=== PATIENT | female | born 1955 | race Hispanic/Latino ===

== ENCOUNTER 2020-02-08 17:17 | Inpatient (IN) | payer OTHER, BC ==
--- NOTE | 2020-02-08 17:38 | RAD REPORT ---
EXAM DESCRIPTION: CT - Ct Stroke Brain Wo Cont - 02/08/2020 5:31 pm CLINICAL HISTORY: CONFUSED COMPARISON: None TECHNIQUE: Axial 5 millimeter thick images of the head were obtained without IV contrast. All CT scans are performed using dose optimization technique as appropriate and may include automated exposure control or mA/KV adjustment according to patient size. FINDINGS: No intracranial hemorrhage, mass, or cerebral edema. No acute infarction identifiable. No cortical edema or sulcal effacement. No extra-axial fluid collections. Nichols matter-white matter diff erentiation is preserved.Ventricles are normal. Visualized portions of the mastoid air cells, paranasal sinuses, and orbits are unremarkable. Findings telephoned to the referring physician 1723 hours IMPRESSION: No CT evidence of acute intracranial process.
[2020-02-08] MEDS ORDERED: NA CHLORIDE 0.9% 1,000 ML ONE ×2 (17:39→18:03)
[2020-02-08 17:50] LABS: Absolute Lymphocytes (CBC) 0.3 K/uL (0.7-4.9); Basophils % 0.3 % (0-1.3); Hematocrit 24.8 % (36.0-45.0); Lymphocytes % 3.7 % (15.3-44.8); MPV 9.5 fL (7.6-11.3); RBC Red Blood Cell Count 2.78 M/uL (3.86-4.86)
[2020-02-08] MEDS ORDERED: CEFAZOLIN/SWI 1gm 1 GM/10 ML SYR ONE (18:03)
--- NOTE | 2020-02-08 18:04 | RAD REPORT ---
EXAM DESCRIPTION: RAD - Chest Single View - 02/08/2020 5:40 pm CLINICAL HISTORY: COUGH COMPARISON: None TECHNIQUE: AP portable chest image was obtained 02/08/2020 5:40 pm . FINDINGS: Lung volumes are low. Left base opacification is present from a infiltrate or atelectasis. Small left pleural effusion may well be present. Heart and vasculature are normal. No pneumothorax. No acute bony abnormality seen. No acute aortic findings suspected. IMPRESSION: Left base infiltrate and/ or atelectasis. Suspected left pleural effusion.
[2020-02-08 18:05] LABS: Protime INR 1.1
[2020-02-08 18:10] LABS: ALT/SGPT 17 U/L (12-78); AST/SGOT 18 U/L (15-37); Albumin 2.1 g/dL (3.4-5.0); Alkaline Phosphatase 43 U/L (45-117); BUN Blood Urea Nitrogen 24 mg/dL (7-18); Bicarbonate 20 mmol/L (21-32); Bilirubin Direct 0.1 mg/dL (0-0.2); Bilirubin Total 0.2 mg/dL (0.2-1.0); Glucose Level 233 mg/dL (74-106); Lipase 23 U/L (73-393); Magnesium 1.6 mg/dL (1.8-2.4); NT PRO-BNP 74 pg/mL (<125); Potassium 3.9 mmol/L (3.5-5.1); Protein, Total 4.4 g/dL (6.4-8.2); Sodium Level 142 mmol/L (136-145); Troponin (Emerg Dept Use Only) < 0.02 ng/mL (0.0-0.045)
--- NOTE | 2020-02-08 18:21 | EDPHYS ---
Physician Documentation [facility] Name: Briseida Pitts Age: 64 yrs Sex: Female : 1955 Arrival Date: 02/08/2020 Time: 17:19 Bed 3 Private MD: ED Physician Arley Oconnell HPI: 02/07 18:52 This 64 yrs old Female presents to ER via EMS with complaints of Unresponsive. jr8 18:52 Onset: The symptoms/episode began/occurred acutely, today. Duration: The episode is jr8 continuous. The symptoms are alleviated by nothing. The symptoms are aggravated by nothing. Associated signs and symptoms: Pertinent positives: recent surgery. Severity of symptoms: At their worst the symptoms were moderate in the emergency department the symptoms are unchanged. It is unknown whether or not the patient has had similar symptoms in the past. The patient has been recently seen by a physician:. Patient just released from outpatient surgery center after having face lift, eye lift, liposuction, and tummy tuck. Dr. Aviles who is patients surgeon stated that she had some mild shortness of breath after waking up from anesthesia. By the time they discharged her from post op was doing well. stated that when they go home patient collapsed while trying to get into house. Was complaining of acute shortness of breath. Patient brought in by EMS at that time. Unresponsive and hypotensive. Patient alert to painful stimulus. Complains of being tired and fatigued . Historical: - Allergies: 17:24 No Known Allergies; bp - Home Meds: 17:24 Unable to obtain [Active]; bp - PMHx: 17:24 Unable to obtain; bp - Immunization history:: Adult Immunizations unknown. - Social history:: Smoking status: unknown. ROS: 18:55 Eyes: Negative for injury, pain, redness, and discharge, ENT: Negative for injury, jr8 pain, and discharge, Neck: Negative for injury, pain, and swelling, Cardiovascular: Negative for chest pain, palpitations, and edema, Respiratory: Negative for shortness of breath, cough, wheezing, and pleuritic chest pain, Abdomen/GI: Negative for abdominal pain, nausea, vomiting, diarrhea, and constipation, Back: Negative for injury and pain, MS/Extremity: Negative for injury and deformity, Skin: Negative for injury, rash, and discoloration. 18:55 Constitutional: Positive for fatigue, malaise. 18:55 Neuro: Positive for altered mental status, dizziness, syncope, weakness. Exam: 18:55 Radiologist reports: No acute intracranial findings present jr8 18:55 Head/Face: Normocephalic, atraumatic. 18:55 ENT: Oropharynx with no redness, swelling, or masses, exudates, or evidence of obstruction, uvula midline. Mucous membranes moist. gingiva pale Cardiovascular: Regular rate and rhythm with a normal S1 and S2. No gallops, murmurs, or rubs. Normal PMI, no JVD. No pulse deficits. Respiratory: Lungs have equal breath sounds bilaterally wheezes noted. Bradypneic at rate of 8 18:55 Skin: cool, dry with normal turgor. Normal color with no rashes, no lesions, and no evidence of cellulitis. MS/ Extremity: Pulses equal, no cyanosis. Neurovascular intact. Full, normal range of motion. 18:55 Eyes: Periorbital structures: ecchymosis, that is mild, bilaterally, incision sites noted to upper lids, Pupils: equal, right pupil is approximately 3 mm(s), left pupil is approximately 3 mm(s), sluggish to respond , Extraocular movements: intact throughout, Conjunctiva: pale, Corneas: are normal, Sclera: no appreciated abnormality. 18:55 Abdomen/GI: Inspection: Large lower abdominal incision present from lipo and tummy tuck. BUSHRA drains present with serosanguinous blood noted. No abdominal distension present. No grimacing with palpation , Bowel sounds: active, all quadrants, Palpation: soft. 18:55 Neuro: Orientation: to person, place, Mentation: able to follow commands, slow to respond, Cranial nerves: CN I not tested, CN II- XII are normal as tested, extraocular movements are intact, Facial palsy and sensory deficits are absent. Tongue strength is normal, Motor: moves all fours, Sensation: no obvious gross deficits, seizure activity, is not displayed by the patient, Abnormal movements: there are no abnormal movements. 19:02 ECG was reviewed by the Attending Physician. jr8 Vital Signs: 17:20 Pulse Ox 95% on 4 lpm NC; bp 17:20 BP 96 / 52; Pulse 92; Resp 16; Temp 97.5; Pulse Ox 100% ; bp 17:30 BP 91 / 52; Pulse 97; Resp 13; Pulse Ox 100% ; bp 18:49 BP 106 / 67; Pulse 86; Resp 14 S; Pulse Ox 100% on Nebulizer Mask; iw 19:05 Temp 96.2(A); dh3 20:52 BP 108 / 59; Pulse 76; Resp 14; Temp 97.4(A); Pulse Ox 100% ; ao 19:05 Warm blankets applied to patient dh3 [place] Coma Score: 18:55 Eye Response: to pain(2). Verbal Response: oriented(5). Motor Response: obeys jr8 commands(6). Total: 13. MDM: 17:27 Patient medically screened. [facility] 18:18 Data reviewed: vital signs, nurses notes, lab test result(s), EKG, radiologic studies, jr8 CT scan, plain films. Data interpreted: Pulse oximetry: on 4L(s) per nasal canula, is 100 %. Interpretation: acceptable. Counseling: I had a detailed discussion with the patient and/or guardian regarding: the historical points, exam findings, and any diagnostic results supporting the discharge/admit diagnosis, lab results, radiology results, the need for further work-up and treatment in the hospital. Physician consultation: Piotr Smith DO was called at 18:19, was contacted at 18:19, regarding admission, to the ICU, consult, patient's condition, and will see patient in ED. 02/07 17:21 Order name: glucometer results - FOR PT WITH NO ID; Complete Time: 17:46 [facility] 02/07 17:28 Order name: Basic Metabolic Panel [facility] 02/07 17:28 Order name: CBC with Diff [facility] 02/07 17:28 Order name: LFT's [facility] 02/07 17:28 Order name: Magnesium [facility] 02/07 17:28 Order name: NT PRO-BNP [facility] 02/07 17:28 Order name: PT-INR [facility] 02/07 17:28 Order name: Troponin (emerg Dept Use Only); Complete Time: 18:23 [facility] 02/07 17:28 Order name: Lipase; Complete Time: 18:23 [facility] 02/07 17:28 Order name: Type And Screen [facility] 02/07 17:29 Order name: Basic Metabolic Panel; Complete Time: 18:23 EDMS 02/07 17:29 Order name: CBC with Automated Diff; Complete Time: 20:41 [facility] 02/07 17:29 Order name: Liver (Hepatic) Function; Complete Time: 18:23 [facility] 02/07 17:29 Order name: Magnesium; Complete Time: 18:23 [facility] 02/07 17:27 Order name: CT Stroke Brain w/o Contrast; Complete Time: 17:46 ss 02/07 17:29 Order name: NT PRO-BNP; Complete Time: 18:23 [facility] 02/07 17:29 Order name: Protime (+INR); Complete Time: 18:12 [facility] 02/07 18:07 Order name: Bb Add On eb 02/07 18:08 Order name: Packed RBC Leukored [facility] 02/07 19:13 Order name: ABO/RH no charge; Complete Time: 19:17 [facility] 02/07 19:35 Order name: Urine Dipstick--Ancillary (enter results); Complete Time: 20:41 tt3 02/07 20:11 Order name: CBC with Automated Diff [facility] 02/07 20:11 Order name: CBC with Automated Diff [facility] 02/07 20:11 Order name: Comprehensive Metabolic Panel [facility] 02/07 20:11 Order name: Comprehensive Metabolic Panel [facility] 02/07 20:11 Order name: Protime (+INR) [facility] 02/07 20:11 Order name: Protime (+INR) [facility] 02/07 20:11 Order name: PTT, Activated Partial Thromb [facility] 02/07 20:11 Order name: PTT, Activated Partial Thromb [facility] 02/07 20:30 Order name: CBC Smear Scan; Complete Time: 20:41 [facility] 02/07 17:28 Order name: XRAY Chest (1 view); Complete Time: 18:12 [facility] 02/07 17:28 Order name: EKG; Complete Time: 17:29 [facility] 02/07 17:28 Order name: Cardiac monitoring; Complete Time: 17:43 [facility] 02/07 17:28 Order name: EKG - Nurse/Tech; Complete Time: 19:10 [facility] 02/07 17:28 Order name: IV Saline Lock; Complete Time: 17:43 [facility] 02/07 17:28 Order name: Labs collected and sent; Complete Time: 17:43 [facility] 02/07 17:28 Order name: O2 Per Protocol; Complete Time: 17:43 [facility] 02/07 17:28 Order name: O2 Sat Monitoring; Complete Time: 17:43 [facility] 02/07 17:28 Order name: IV Saline Lock - Large Bore; Complete Time: 17:42 [facility] 02/07 17:31 Order name: Blood Glucose Level; Complete Time: 17:42 [facility] 02/07 17:31 Order name: Urine Dipstick-Ancillary (obtain specimen); Complete Time: 19:43 [facility] 02/07 17:31 Order name: Wolf; Complete Time: 18:48 [facility] 02/07 17:31 Order name: CT Chest For PE Angio; Complete Time: 18:45 [facility] 02/07 17:31 Order name: Soft Tissue Neck W/Contr CT; Complete Time: 18:45 [facility] 02/07 20:11 Order name: CONS Pharmacy Consult EDMS 02/07 20:11 Order name: Regular EDMS EC:02 Rate is 91 beats/min. Rhythm is regular, Normal Sinus Rhythm. QRS Welcome is Normal. NH jr8 interval is normal at 150 msec. QRS interval is normal at 88 msec. QT interval is normal at 464 msec. No Q waves. T waves are Inverted. No ST changes noted. Clinical impression: NSR w/ Non-specific ST/T Changes. Interpreted by me. Reviewed by me. Administered Medications: Discontinued: NS 0.9% 1000 ml IV at 1 bolus Per protocol; 1000 mL bolus Discontinued: NS 0.9% 1000 ml IV at 1 bolus Per protocol; 1000 mL bolus 17:33 Drug: NS 0.9% 1000 ml Route: IV; Rate: 1 bolus; Site: left antecubital; iw 18:00 Drug: NS 0.9% 1000 ml Route: IV; Rate: 1 bolus; Site: right forearm; iw 19:43 Follow up: IV Status: Completed infusion; IV Intake: 200ml ao 18:00 Drug: Ancef 1 grams Route: IVPB; Site: right forearm; iw 18:15 Follow up: IV Status: Completed infusion iw 18:48 Drug: NS 0.9% 1000 ml Route: IV; Rate: 125 ml/hr; Site: right antecubital; iw 18:48 Drug: Albuterol 2.5 mg Route: Inhalation; iw 19:22 Drug: Magnesium Sulfate 2 grams Route: IVPB; Infused Over: 2 hrs; Site: right ao antecubital; Disposition: 02/08 13:38 Co-signature as Attending Physician, Arley Anish MD I agree with the assessment and praneeth plan of care. Disposition: 02/08/20 18:20 Hospitalization ordered by Piotr Smith for Inpatient Admission. Preliminary diagnosis are Hypovolemic shock, Adverse effect of intravenous anesthetics, Acute respiratory failure with hypoxia. - Bed requested for Intensive Care Unit. - Status is Inpatient Admission. ao - Condition is Fair. - Problem is new. - Symptoms are unchanged. Signatures: Dispatcher [employer] EDArley Monroy MD MD cha Williams, Irene, Jaya Stewart RN, PA PA jr8 Attema, Carlos, OPERATORS TEACHER-C OPERATORS TEACHER-Cla1 Bela Silva, GOPAL HERRON cg Cj Araya, RN Jeremias Magallanes RN RN bp Corrections: (The following items were deleted from the chart) 02/07 18:55 18:52 Patient just released from outpatient surgery center after having face lift, eye jr8 lift, liposuction, and tummy tuck. Dr. Aviles who is patients surgeon stated that she had some mild shortness of breath after waking up from anesthesia. By the time they discharged her from post op was doing well. stated that when they go home patient collapsed while trying to get into house. Was complaining of acute shortness of breath. Patient brought in by EMS at that time. Unresponsive and hypotensive . jr8 21:00 18:20 Hospitalization Ordered by Piotr Smith DO for Inpatient Admission. Preliminary cg diagnosis is Hypovolemic shock; Adverse effect of intravenous anesthetics; Acute respiratory failure with hypoxia. Bed requested for Telemetry/MedSurg (Inpatient). Status is Inpatient Admission. Condition is Fair. Problem is new. Symptoms are unchanged. jr8 21:58 21:00 02/08/2020 18:20 Hospitalization Ordered by Piotr Smith DO for Inpatient ao Admission. Preliminary diagnosis is Hypovolemic shock; Adverse effect of intravenous anesthetics; Acute respiratory failure with hypoxia. Bed requested for Intensive Care Unit. Status is Inpatient Admission. Condition is Fair. Problem is new. Symptoms are unchanged. cg
--- NOTE | 2020-02-08 18:21 | ER ---
Nurse's Notes [facility] Name: Briseida Pitts Age: 64 yrs Sex: Female : 1955 Arrival Date: 02/08/2020 Time: 17:19 Bed 3 Private MD: Diagnosis: Hypovolemic shock;Adverse effect of intravenous anesthetics;Acute respiratory failure with hypoxia Presentation: 02/07 17:06 Note STROKE ALERT CALLED, PT NOTED TO HAVE NO CORNEAL REFLEX. bp 17:20 Chief complaint: EMS states: COLLAPSED AFTER GOING HOME FROM "OUTPATIENT" [facility], bp [facility]. Coronavirus screen: Proceed with normal triage. Ebola Screen: No symptoms or risks identified at this time. Initial Sepsis Screen: Does the patient meet any 2 criteria? Altered Mental Status. No. Patient's initial sepsis screen is negative. Does the patient have a suspected source of infection? No. Patient's initial sepsis screen is negative. Risk Assessment: Do you want to hurt yourself or someone else? Unable to obtain. Onset of symptoms was February 08, 2020 at 17:00. Care prior to arrival: IV initiated. 20 GA, in the right forearm, Glucose check: 221 Oxygen administered. via nasal cannula. 17:20 Method Of Arrival: EMS: [facility] bp 17:20 Acuity: KAYCE 1 bp Triage Assessment: 17:24 General: Appears distressed, Behavior is unresponsive. Pain: Unable to use pain scale. bp Patient is unresponsive. EENT: POST SURGICAL. Neuro: Level of Consciousness is unresponsive. Cardiovascular: Rhythm is sinus rhythm. Respiratory: Airway is patent Respiratory effort is shallow. GI: No signs and/or symptoms were reported involving the gastrointestinal system. : No signs and/or symptoms were reported regarding the genitourinary system. Derm: No deficits noted. Musculoskeletal: No deficits noted. Injury Description: MX FRESH SURGICAL WOUNDS. Historical: - Allergies: 17:24 No Known Allergies; bp - Home Meds: 17:24 Unable to obtain [Active]; bp - PMHx: 17:24 Unable to obtain; bp - Immunization history:: Adult Immunizations unknown. - Social history:: Smoking status: unknown. Screenin:30 Abuse screen: Denies threats or abuse. Denies injuries from another. Nutritional bp screening: No deficits noted. Tuberculosis screening: No symptoms or risk factors identified. Fall Risk None identified. Assessment: 17:20 General: PT RETURNED FROM CT. NO GROSS HEMORRHAGE NOTED ON CT PER RADIOLOGY. bp 18:49 Reassessment: Patient appears in no apparent distress at this time. pt appears to be iw sleeping, respirations even, unlabored, responds minimally to pain only, but does respond appropriately, remains at bedside, updated on POC, pt will be admitted to ICU, needs blood transfusion, BP improving, up to 106 systolic. 20:12 General: Appears comfortable, Behavior is drowsy. Pain: Unable to use pain scale. FLACC ao scale score is 0 out of 10. Neuro: Level of Consciousness is lethargic, stuporous. 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 Pt able to state her name.. Cardiovascular: Capillary refill < 3 seconds Patient's skin is warm and dry. Respiratory: Airway is patent Respiratory effort is even, unlabored, Respiratory pattern is regular. GI: Abdomen is non-distended. : No signs and/or symptoms were reported regarding the genitourinary system. EENT: Facial bruising and cut from reported surgery. Derm: Bruising that is bright red, dark purple, Facial and cuts from reported surgery. Musculoskeletal: Circulation, motion, and sensation intact. Vital Signs: 17:20 Pulse Ox 95% on 4 lpm NC; bp 17:20 BP 96 / 52; Pulse 92; Resp 16; Temp 97.5; Pulse Ox 100% ; bp 17:30 BP 91 / 52; Pulse 97; Resp 13; Pulse Ox 100% ; bp 18:49 BP 106 / 67; Pulse 86; Resp 14 S; Pulse Ox 100% on Nebulizer Mask; iw 19:05 Temp 96.2(A); dh3 20:52 BP 108 / 59; Pulse 76; Resp 14; Temp 97.4(A); Pulse Ox 100% ; ao 19:05 Warm blankets applied to patient dh3 [place] Coma Score: 18:55 Eye Response: to pain(2). Verbal Response: oriented(5). Motor Response: obeys jr8 commands(6). Total: 13. ED Course: 17:19 Patient arrived in ED. bp 17:23 Triage completed. bp 17:27 Arley Oconnell MD is Attending Physician. praneeth 17:27 Arm band placed on. bp 17:30 Patient has correct armband on for positive identification. Bed in low position. Call bp light in reach. Side rails up X2. 17:31 CT Stroke Brain w/o Contrast In Process Unspecified. EDMS 17:31 Maintain EMS IV. Dressing intact. Good blood return noted. Site clean \\T\\ dry. Gauge \\T\\ bp site: 20 G R FOREARM. 17:32 Talisha Villalobos, RN is Primary Nurse. iw 17:39 Jaya Wiley PA is PHCP. jr8 17:40 XRAY Chest (1 view) In Process Unspecified. EDMS 18:17 CT Chest For PE Angio In Process Unspecified. EDMS 18:17 Soft Tissue Neck W/Contr CT In Process Unspecified. EDMS 18:19 Piotr Smith DO is Hospitalizing Provider. jr8 18:37 Wolf cath inserted, using sterile technique, 16 Fr., by de, balloon inflated, to dh3 gravity drainage, returned clear yellow urine. Patient tolerated well. 19:00 EKG done, by ED staff, reviewed by Jaya KEARNEY. 3 21:57 No provider procedures requiring assistance completed. Patient admitted, IV remains in ao place. Administered Medications: Discontinued: NS 0.9% 1000 ml IV at 1 bolus Per protocol; 1000 mL bolus Discontinued: NS 0.9% 1000 ml IV at 1 bolus Per protocol; 1000 mL bolus 17:33 Drug: NS 0.9% 1000 ml Route: IV; Rate: 1 bolus; Site: left antecubital; iw 18:00 Drug: NS 0.9% 1000 ml Route: IV; Rate: 1 bolus; Site: right forearm; iw 19:43 Follow up: IV Status: Completed infusion; IV Intake: 200ml ao 18:00 Drug: Ancef 1 grams Route: IVPB; Site: right forearm; iw 18:15 Follow up: IV Status: Completed infusion iw 18:48 Drug: NS 0.9% 1000 ml Route: IV; Rate: 125 ml/hr; Site: right antecubital; iw 18:48 Drug: Albuterol 2.5 mg Route: Inhalation; iw 19:22 Drug: Magnesium Sulfate 2 grams Route: IVPB; Infused Over: 2 hrs; Site: right ao antecubital; Intake: 19:43 IV: 200ml; Total: 200ml. ao Outcome: 18:20 Decision to Hospitalize by Provider. jr8 21:57 Admitted to ICU accompanied by nurse, room 05, Report called to GOPAL Richter :57 Condition: stable 21:57 Instructed on the need for admit. 21:58 Patient left the ED. ao Signatures: Dispatcher [employer] EDArley Monroy MD MD cha Williams, Irene, Jaya Stewart RN, PA PA jr8 Cj Araya RN RN ao Herrera, Deanna [facility] Jeremias Guajardo RN RN bp
--- NOTE | 2020-02-08 18:29 | RAD REPORT ---
EXAM DESCRIPTION: CT - Chest For Pe Angio - 02/08/2020 6:16 pm CLINICAL HISTORY: sp surgery;Dyspnea COMPARISON: Chest Single View dated 02/08/2020; Soft Tissue Neck W/Contr dated 02/08/2020 TECHNIQUE: Dynamically enhanced 3 mm thick images of the chest were obtained during administration o f approximately 150mL Isovue 370 IV contrast. Coronal and oblique MIP reconstruction images were gene rated and reviewed. Exam utilizes a protocol to evaluate the pulmonary arterial tree. All CT scans are performed using dose optimization technique as appropriate and may include automated exposure control or mA/KV adjustment according to patient size. FINDINGS: No pulmonary emboli are identified. The aorta as imaged shows no acute or suspicious finding. No pericardial thickening or effusion. Bilateral lung base atelectasis is present. Scattered airspace opacities are present generally more c entral than peripheral in distribution. This is not a typical COVID-19 infection pattern. No measurab le pleural effusion. There is no pneumothorax. No mediastinal or hilar suspicious masses. No chest wall masses or abnormal axillary lymphadenopathy. No pneumomediastinum. No rib fractures are identified. No tracheal or esophageal rent or tear identif iable. Limited upper abdomen imaging shows a dilated gallbladder. There is a single large densely calcified stone present. Gastric bypass surgical changes are evident. Splenic artery aneurysm is present with c alcification. The patient has significant amount of subcutaneous air in the deep soft tissues primarily lateral yarely st along the inferior mammary fold of the left breast an adjacent lateral fatty soft tissues. Patient also has some subcutaneous emphysema on the right. Clinical history indicates patient is status post surgery. Procedure performed is unknown. It is presumed the air is related to surgical procedure rat her than than the soft tissue infectious process. This needs correlation. Bilateral breast implants are in place. IMPRESSION: No pulmonary emboli. Bilateral lung base atelectasis slightly worse on the left. There is no pleural effusion. Prominent subcutaneous air is seen along the left lateral chest between the fat muscle interface and minimally on the right. No thoracic etiology seen. History indicates some surgical procedure has rece ntly been performed. Correlation is needed to determine if the air could of comp from that procedure.
--- NOTE | 2020-02-08 18:32 | RAD REPORT ---
EXAM DESCRIPTION: CT - Soft Tissue Neck W/Contr - 02/08/2020 6:17 pm CLINICAL HISTORY: swelling, sp surgey,intubation COMPARISON: No comparisons TECHNIQUE: During dynamic enhancement using 100 milliliters nonionic IV contrast, axial 5 millimeter thick images of the neck were obtained. All CT scans are performed using dose optimization technique as appropriate and may include automated exposure control or mA/KV adjustment according to patient size. FINDINGS: Intracranial portion the examination is unremarkable. Mastoid air cells and paranasal sinu ses are clear. Imaged portions of the globes and orbits show no suspicious finding. Air is seen in portillo bcutaneous tissues of the face not unexpected given the surgical procedure performed. Numerous skin s taples are present in the posterior neck as part of the surgical procedure. The parotid, submandibular and thyroid gland tissues show no suspicious findings. No vascular abnorma lity. No pharyngeal mucosal mass or asymmetry. No tonsillar or tongue base suspicious finding. No hematoma or mass in the soft tissues of the neck. No trachea compromise or deviation. Pharyngeal structures an d epiglottis are normal. IMPRESSION: Posterior base of the skull skin staple lines are present and there are air changes in t he subcutaneous tissues all consistent with surgical procedure performed. No trachea or airway compromise seen. No mass, hematoma or other suspicious finding.
[2020-02-08] MEDS ORDERED: ALBUTEROL 2.5 MG/3 ML NEB SOL ONE (18:42)
[2020-02-08] MEDS ORDERED: Magnesium Sulfate 2gm IVPB 2 G/50 ML BAG IV ONE (19:22)
[2020-02-08] MEDS ORDERED: NA CHLORIDE 0.9% 100 ML IV ONE (19:42)
[2020-02-08] MEDS ORDERED: ONDANSETRON 4 MG/2 ML VIAL IV PRN (20:09)
[2020-02-08] MEDS ORDERED: MORPHINE 2 MG/ML SYR IV PRN (20:09)
[2020-02-08] MEDS ORDERED: ACETAMINOPHEN 500 MG TAB PO PRN (20:09)
[2020-02-08 20:29] LABS: Anisocytosis 1+; Blood Morphology Comment NOTED (NOT SEEN); Platelet Estimate ADEQ; Poikilocytosis 1+; Urine White Blood Cell Casts OK
[2020-02-08 20:31] LABS: Urine Blood TRACE (NEG); Urine Glucose NEGATIVE (NEG); Urine Protein NEGATIVE (NEG); Urine Specific Gravity 1.015 (1.005-1.030); Urine pH 5.5 (5.0-7.0)
[2020-02-08] MEDS ORDERED: NA CHLORIDE 0.9% 1,000 ML IV SCH (21:00)
[2020-02-08 22:07] VITALS: O2SAT 100
[2020-02-08 23:06] VITALS: BMI 30.4
[2020-02-09 06:12] LABS: Absolute Lymphocytes (CBC) 1.2 K/uL (0.7-4.9); Basophils % 0.2 % (0-1.3); Hematocrit 32.3 % (36.0-45.0); Lymphocytes % 12.6 % (15.3-44.8); MPV 9.2 fL (7.6-11.3); RBC Red Blood Cell Count 3.65 M/uL (3.86-4.86)
[2020-02-09 06:16] LABS: Protime INR 1.06
[2020-02-09 06:26] LABS: Albumin 2.1 g/dL (3.4-5.0); Bilirubin Total 0.3 mg/dL (0.2-1.0); Potassium 4.6 mmol/L (3.5-5.1); Protein, Total 4.8 g/dL (6.4-8.2)
--- NOTE | 2020-02-09 06:54 | P.HP ---
Certification for Inpatient Patient admitted to: Inpatient With expected LOS: >2 Midnights Patient will require the following post-hospital care: None Practitioner: I am a practitioner with admitting privileges, knowledge of patient current condition, hospital course, and medical plan of care. Services: Services provided to patient in accordance with Admission requirements found in Title 42 Section 412.3 of the Code of Federal Regulations Patient History Date of Service: 02/08/20 Reason for admission: Syncope and collapse; ABL anemia; status post face list and tummy tuck History of Present Illness: Patient is a 64-year-old female came to the hospital after collapsing. She had just undergone a tummy tuck and a face lift. She was weak and feeling lethargic. When she got into the house she collapsed. She was brought in to the emergency room with a stroke alert. She was evaluated for a stroke and had multiple imaging studies. No significant abnormalities were noted. She did have a lot of bruising in the area of her tummy tuck. Nothing really to the face. She also had drainage into the BUSHRA drain into the abdomen. At this time, she jordi l be admitted to the hospital as her hemoglobin has decreased significantly from preoperative levels. Will give her 2 units of packed red blood cells. Will monitor in the intensive care unit since her hemoglobin has been decreasing. Allergies No Known Allergies Allergy (Verified 02/08/20 21:43) Home Medications: Atorvastatin Calcium [Lipitor] 40 mg PO BEDTIME 02/09/20 Celecoxib [Celebrex] 200 mg PO BID 02/09/20 Cyclobenzaprine HCl [Flexeril] 5 mg PO Q8HP PRN 02/09/20 Gabapentin 300 mg PO TID 02/09/20 Losartan Potassium [Cozaar] 100 mg PO DAILY 02/09/20 Meloxicam [Mobic] 7.5 mg PO DAILY 02/09/20 Metoprolol Succinate [Toprol Xl] 25 mg PO DAILY 02/09/20 Phentermine HCl [Adipex-P] 37.5 mg PO DAILY 02/09/20 Tramadol HCl [Ultram] 50 mg PO Q6HP PRN 02/09/20 - Past Medical/Surgical History Has patient received pneumonia vaccine in the past: Yes Diabetic: No -: HTN -: GERD -: Hyperlipidemia -: Gastric bypass -: Breast Augmentation - Family History Mother Medical History: Hypertension - Social History Smoking Status: Never smoker Alcohol use: No CD- Drugs: No Caffeine use: No Place of Residence: Home Review of Systems 10-point ROS is otherwise unremarkable Physical Examination - Vital Signs Temperature: 96.9 F Blood Pressure: 104/58 Pulse: 82 Respirations: 11 Pulse Ox (%): 100 - Physical Exam General: Alert, In no apparent distress, Oriented x3, Other (Facial swelling from her surgical procedure) HEENT: Atraumatic, PERRLA, Mucous membr. moist/pink, EOMI, Sclerae nonicteric Neck: Supple, 2+ carotid pulse no bruit, No LAD, Without JVD or thyroid abnormality Respiratory: Clear to auscultation bilaterally, Normal air movement Cardiovascular: Regular rate/rhythm, Normal S1 S2, No murmurs Gastrointestinal: Normal bowel sounds, Soft and benign, Non-distended, No tenderness, Other (BUSHRA drains in place of the abdomen; hematoma to the hip region) Musculoskeletal: No tenderness Integumentary: No rashes Neurological: Normal speech, Normal strength at 5/5 x4 extr, Normal tone, Sensation intact, Cranial nerves 3-12 intact (Grossly intact), Normal affect Lymphatics: No axilla or inguinal lymphadenopathy - Studies Laboratory Data (last 24 hrs) 02/08/20 17:35: PT 13.0 H, INR 1.10 02/08/20 17:35: WBC 9.4, Hgb 7.9 L*, Hct 24.8 L, Plt Count 191 02/08/20 17:35: Sodium 142, Potassium 3.9, BUN 24 H, Creatinine 1.06, Glucose 233 H, Magnesium 1.6 L, Total Bilirubin 0.2, AST 18, ALT 17, Alkaline Phosphatase 43 L, Lipase 23 L Assessment & Plan - Problems (Diagnosis) (1) Status post cosmetic plastic surgery Current Visit: Yes Status: Acute (2) Syncope and collapse Current Visit: Yes Status: Acute (3) Acute blood loss anemia Current Visit: Yes Status: Acute - Plan Plan: 1. Transfuse 2 units packed red blood cells 2. Monitor H&H after transfusion 3. Monitor in ICU as her hemoglobin has decreased 4. Monitor on telemetry for arrhythmias 5. CT scan has been done. Awaiting final report. Abdomen CT has not been perf ormed at this time will hold off and monitor H&H 6. GI and DVT prophylaxis Discharge Plan: Home Plan to discharge in: Greater than 2 days - Advance Directives Does patient have a Living Will: No Does patient have a Durable POA for Healthcare: No - Code Status/Comfort Care Code Status Assessed: Yes Code Status: Full Code Critical Care: No Time Spent Managing PTS Care (In Minutes): 45
--- NOTE | 2020-02-09 08:00 | P.PN ---
Subjective Date of Service: 02/09/20 Subjective: No new changes, No C/O voiced, Improving Review of Systems 10-point ROS is otherwise unremarkable Physical Examination - Vital Signs Temperature: 96.9 F Blood Pressure: 104/58 Pulse: 82 Respirations: 11 Pulse Ox (%): 100 - Physical Exam General: Alert, In no apparent distress, Other (facial swelling) Respiratory: Clear to auscultation bilaterally, Normal air movement Cardiovascular: Regular rate/rhythm, Normal S1 S2, No murmurs Gastrointestinal: Normal bowel sounds, Soft and benign, Non-distended, No tenderness Musculoskeletal: No clubbing, No swelling, No tenderness Neurological: Normal tone, Sensation intact, Cranial nerves 3-12 intact - Studies Laboratory Data (last 24 hrs) 02/08/20 17:35: PT 13.0 H, INR 1.10 02/08/20 17:35: WBC 9.4, Hgb 7.9 L*, Hct 24.8 L, Plt Count 191 02/08/20 17:35: Sodium 142, Potassium 3.9, BUN 24 H, Creatinine 1.06, Glucose 233 H, Magnesium 1.6 L, Total Bilirubin 0.2, AST 18, ALT 17, Alkaline Phosphatase 43 L, Lipase 23 L Medications List Reviewed: Yes Assessment & Plan - Problems (Diagnosis) (1) Status post cosmetic plastic surgery Current Visit: Yes Status: Acute (2) Syncope and collapse Current Visit: Yes Status: Acute (3) Acute blood loss anemia Current Visit: Yes Status: Acute - Plan Plan: 1. H&H stable;repeat-still with significant drainage in the BUSHRA drain 2. Monitor H&H after transfusion 3. Transfer to the floor 4. Monitor on telemetry for arrhythmias 5. GI and DVT prophylaxis Discharge Plan: Home Plan to discharge in: 24 Hours - Advance Directives Does patient have a Living Will: No Does patient have a Durable POA for Healthcare: No - Code Status/Comfort Care Code Status: Full Code Critical Care: No Time Spent Managing PTS Care (In Minutes): 30
[2020-02-09 12:16] LABS: Absolute Lymphocytes (CBC) 1.9 K/uL (0.7-4.9); Basophils % 0.2 % (0-1.3); Hematocrit 33.1 % (36.0-45.0); Lymphocytes % 16.3 % (15.3-44.8); MPV 9.5 fL (7.6-11.3); RBC Red Blood Cell Count 3.74 M/uL (3.86-4.86)
[2020-02-09] MEDS ORDERED: TRAMADOL HCL 50 MG TAB PO PRN (12:16)
[2020-02-09] MEDS ORDERED: HYDROCODONE/APAP 7.5/325 MG TAB PO PRN (12:17)
--- NOTE | 2020-02-09 13:40 | P.DS ---
Admission Date: 02/08/20 Discharge Date: 02/09/20 Primary Care Provider: none; Plastic Surgery-Dr. Aviles Disposition: ROUTINE DISCHARGE Discharge Condition: GOOD Reason for Admission: Syncope and collapse; ABL anemia; status post face list and tummy tuck Consultations: Plastic surgery-Dr. Aviles Procedures: CT Head: FINDINGS: No intracranial hemorrhage, mass, or cerebral edema. No acute infarction identifiable. No cortical edema or sulcal effacement. No extra-axial fluid collections. Nichols matter-white matter differentiation is preserved.Ventricles are normal. Visualized portions of the mastoid air cells, paranasal sinuses, and orbits are unremarkable. IMPRESSION: No CT evidence of acute intracranial process. CT Neck: FINDINGS: Intracranial portion the examination is unremarkable. Mastoid air cells and paranasal sinuses are clear. Imaged portions of the globes and orbits show no suspicious finding. Air is seen in subcutaneous tissues of the face not unexpected given the surgical procedure performed. Numerous skin dragan are present in the posterior neck as part of the surgical procedure. The parotid, submandibular and thyroid gland tissues show no suspicious findings. No vascular abnormality. No pharyngeal mucosal mass or asymmetry. No tonsillar or tongue base suspicious finding. No hematoma or mass in the soft tissues of the neck. No trachea compromise or deviation. Pharyngeal structures and epiglottis are normal. IMPRESSION: Posterior base of the skull skin staple lines are present and there are air changes in the subcutaneous tissues all consistent with surgical procedure performed. No trachea or airway compromise seen. No mass, hematoma or other suspicious find ing. CT Chest: FINDINGS: No pulmonary emboli are identified. The aorta as imaged shows no acute or suspicious finding. No pericardial thickening or effusion. Bilateral lung base atelectasis is present. Scattered airspace opacities are present generally more central than peripheral in distribution. This is not a typical COVID-19 infection pattern. No measurable pleural effusion. There is no pneumothorax. No mediastinal or hilar suspicious masses. No chest wall masses or abnormal axillary lymphadenopathy. No pneumomediastinum. No rib fractures are identified. No tracheal or esophageal rent or tear identifiable. Limited upper abdomen imaging shows a dilated gallbladder. There is a single large densely calcified stone present. Gastric bypass surgical changes are evident. Splenic artery aneurysm is present with calcification. The patient has significant amount of subcutaneous air in the deep soft tissues primarily lateral chest along the inferior mammary fold of the left breast an adjacent lateral fatty soft tissues. Patient also has some subcutaneous emphysema on the right. Clinical history indicates patient is status post surgery. Procedure performed is unknown. It is presumed the air is related to surgical procedure rather than than the soft tissue infectious process. This needs correlation. Bilateral breast implants are in place. IMPRESSION: No pulmonary emboli. Medical Problem List: Syncope and collapse status post plastic surgery including tummy tuck and facelift with noted acute anemia and hypotension likely related to overmedication for her hypertension Hypotension likely related to acute renal injury/dehydration and overmedication of hypertensive medication Hyperlipidemia Brief History of Present Illness: 64-year-old female presented to the emergency room after syncope and collapse. She had undergone a tummy tuck and face left earlier. She had been feeling weak and lethargic. When she arrived at the house she collapsed. Patient was brought in to the ER for further evaluation. In the ER patient was found to be hypotensive and anemic. Patient admitted to ICU for close monitoring. Hospital Course: Patient presented with syncope and collapse. Patient had plastic surgery including tummy tuck and face lift earlier in the day. When patient went home she became very fatigued and ill. EMS evaluated the patient. Patient was sent to the ER for further evaluation. In the ER patient found to be hypotensive with acute anemia noted Patient admitted for further evaluation and treatment. Patient required transfusion of 2 units of packed red blood cells. Patient also required IV fluids. Patient was seen and evaluated by plastic surgery who have performed the procedure. Patient has responded well to IV fluids and blood. At discharge hemoglobin stable at this time. Patient has ambulated and doing well. Patient to be discharged home and follow up with plastic surgery later today. Recommend to monitor CBC in 1 week to monitor progress. Syncope with noted hypotension likely related to acute renal injury/dehydration and overmedication of hypertensive medication. Patient currently takes losartan 100 mg daily and Toprol-XL 25 mg daily. Patient likely does not require these medications. Recommend to discontinue both medications at this time. Recommend to monitor blood pressure daily. If her blood pressure remains above 140/90 then patient may need to resume medication likely Toprol-XL 25 mg daily. Recommend to monitor blood pressure daily. Further instruction on medication can be done by her PCP. Renal function remained stable this time. Recommend to recheck lab-BMP in 1 week to monitor progress. At discharge medications were reviewed. Patient may continue with Lipitor 40 mg daily, Flexeril as directed, gabapentin as directed and tramadol as directed. For now losartan, Toprol-XL, meloxicam, Celebrex and Adipex had been discontinued due to hypotension and acute anemia.. Vital Signs/Physical Exam: Temp Pulse Resp BP Pulse Ox 96.9 F 80 12 103/53 L 98 02/09/20 08:00 02/09/20 11:00 02/09/20 11:00 02/09/20 11:00 02/09/20 11:00 General: Alert HEENT: Other (Post operative changes noted to the face with wrappings in place. BUSHRA tubes in place) Neck: Supple Respiratory: Clear to auscultation bilaterally, Normal air movement Cardiovascular: Normal pulses, Regular rate/rhythm Gastrointestinal: Normal bowel sounds, Other (Postoperative changes noted to the abdomen. BUSHRA tubes in place.) Neurological: Normal speech, Normal strength at 5/5 x4 extr, Normal tone, Normal affect Laboratory Data at Discharge: WBC 11.5 K/uL (4.3-10.9) H D 02/09/20 11:35 Hgb 10.9 g/dL (12.0-15.0) L 02/09/20 11:35 Hct 33.1 % (36.0-45.0) L 02/09/20 11:35 Plt Count 147 K/uL (152-406) L 02/09/20 11:35 PT 12.5 SECONDS (9.5-12.5) 02/09/20 05:55 INR 1.06 02/09/20 05:55 APTT 34.1 SECONDS (24.3-36.9) 02/09/20 05:55 Sodium 144 mmol/L (136-145) 02/09/20 05:55 Potassium 4.6 mmol/L (3.5-5.1) 02/09/20 05:55 BUN 13 mg/dL (7-18) 02/09/20 05:55 Creatinine 0.80 mg/dL (0.55-1.3) 02/09/20 05:55 Glucose 125 mg/dL (74-106) H 02/09/20 05:55 Magnesium 1.6 mg/dL (1.8-2.4) L 02/08/20 17:35 Total Bilirubin 0.3 mg/dL (0.2-1.0) 02/09/20 05:55 AST 15 U/L (15-37) 02/09/20 05:55 ALT 18 U/L (12-78) 02/09/20 05:55 Alkaline Phosphatase 46 U/L (45-117) 02/09/20 05:55 Lipase 23 U/L (73-393) L 02/08/20 17:35 Home Medications: Atorvastatin Calcium [Lipitor] 40 mg PO BEDTIME 02/09/20 Cyclobenzaprine HCl [Flexeril] 5 mg PO Q8HP PRN 02/09/20 Gabapentin 300 mg PO TID 02/09/20 Tramadol HCl [Ultram] 50 mg PO Q6HP PRN 02/09/20 Patient Discharge Instructions: 1. Recommend follow up with PCP in 1 week to follows hospitalization. 2. Patient presented with syncope and collapse. Patient had plastic surgery including tummy tuck and face lift earlier in the day. When patient went home she became very fatigued and ill. EMS evaluated the patient. Patient was sent to the ER for further evaluation. In the ER patient found to be hypotensive with acute anemia noted Patient admitted for further evaluation and treatment. Patient required transfusion of 2 units of packed red blood cells. Patient also required IV fluids. Patient was seen and evaluated by plastic surgery who have performed the procedure. Patient has responded well to IV fluids and blood. At discharge hemoglobin stable at this time. Patient has ambulated and doing well. Patient to be discharged home and follow up with plastic surgery later today. Recommend to monitor CBC in 1 week to monitor progress. 3. Syncope with noted hypotension likely related to acute renal injury/dehydration and overmedication of hypertensive medication. Patient currently takes losartan 100 mg daily and Toprol-XL 25 mg daily. Patient likely does not require these medications. Recommend to discontinue both medications at this time. Recommend to monitor blood pressure daily. If her blood pressure remains above 140/90 then patient may need to resume medication likely Toprol-XL 25 mg daily. Recommend to monitor blood pressure daily. Further instruction on medication can be done by her PCP. Renal function remained stable this time. Recommend to recheck lab-BMP in 1 week to monitor progress. 4. At discharge medications were reviewed. Patient may continue with Lipitor 40 mg daily, Flexeril as directed, gabapentin as directed and tramadol as directed. For now losartan, Toprol-XL, meloxicam, Celebrex and Adipex had been discontinued due to hypotension and acute anemia.. Diet: AHA Activity: Fall precautions Time spent managing pt's care (in minutes): 55
[2020-02-09 15:02] VITALS: BP 106/50; TEMP 97.6
--- NOTE | 2020-02-10 07:20 | EKG ---
Test Date: 2020-02-08 Test Time: 18:59:35 [employer]: KELVIN MEASUREMENT RESULTS: Intervals: Rate: 91 WA: 150 QRSD: 88 QT: 378 QTc: 464 [place]: P: 44 WA: 150 QRS: -4 T: 3 INTERPRETIVE STATEMENTS: Normal sinus rhythm Nonspecific T wave abnormality Abnormal ECG No previous ECG available for comparison Electronically Signed On 02-10-20 07:16:10 CDT by Odin De Los Santos
== END 2020-02-09 14:40 | disposition home or self-care (01) | DRG 918 ==
LOC: ER 17:17 → OBSVTOIN 20:09 → INTOOBSV 20:09 → ERHOLD 20:09 → 3RD-ICU 21:31
PROVIDERS: ADMIT Hospitalist; ATTEND Hospitalist
PROC: 30233N1 Transfusion of Nonautologous Red Blood Cells into Peripheral Vein, Percutaneous Approach (ICD-10-PCS; principal; 2020-02-08)
DX: T46.5X1A Poisoning by other antihypertensive drugs, accidental (unintentional), initial encounter (principal); D62 Acute posthemorrhagic anemia; N17.9 Acute kidney failure, unspecified; I10 Essential (primary) hypertension; K21.9 Gastro-esophageal reflux disease without esophagitis; E78.5 Hyperlipidemia, unspecified; Z98.84 Bariatric surgery status; Z79.899 Other long term (current) drug therapy; Z98.82 Breast implant status; R55 Syncope and collapse; I95.2 Hypotension due to drugs; E86.0 Dehydration
CPT/HCPCS: 36415; 51702; 70450; 70491; 71045; 71275; 80048; 80053; 80076; 81003; 82565; 82947; 83690; 83735; 83880; 84484; 85025; 85610; 85730; 86850; 86900; 86901; 93005; 96361; 96374; 96375; 99291; J0690; J3475; J7030; P9016; Q9967

== ENCOUNTER 2020-05-26 03:27 | Emergency (ER) | payer OTHER, BC ==
[2020-05-26 05:06] LABS: Absolute Lymphocytes (CBC) 2.1 K/uL (0.7-4.9); Basophils % 0.5 % (0-1.3); Hematocrit 23.8 % (36.0-45.0); Lymphocytes % 19.7 % (15.3-44.8); RBC Red Blood Cell Count 2.76 M/uL (3.86-4.86)
[2020-05-26 05:12] LABS: Protime INR 1.01
[2020-05-26 05:27] LABS: ALT/SGPT 18 U/L (12-78); AST/SGOT 14 U/L (15-37); Albumin 2.6 g/dL (3.4-5.0); Alkaline Phosphatase 84 U/L (45-117); BUN Blood Urea Nitrogen 28 mg/dL (7-18); Bicarbonate 27 mmol/L (21-32); Bilirubin Direct 0.1 mg/dL (0-0.2); Bilirubin Total 0.4 mg/dL (0.2-1.0); Glucose Level 111 mg/dL (74-106); Magnesium 2.4 mg/dL (1.8-2.4); NT PRO-BNP 100 pg/mL (<125); Protein, Total 6.6 g/dL (6.4-8.2); Sodium Level 136 mmol/L (136-145); Troponin (Emerg Dept Use Only) < 0.02 ng/mL (0.0-0.045)
[2020-05-26] MEDS ORDERED: NA CHLORIDE 0.9% 1,000 ML ONE (07:06)
[2020-05-26 07:40] LABS: Thyroid Stimulating Hormone 5.22 uIU/mL (0.360-3.740)
--- NOTE | 2020-05-26 08:40 | RAD REPORT ---
EXAM DESCRIPTION: CT - Chest For Pe Angio - 05/26/2020 7:31 am CLINICAL HISTORY: Chest pain. PALPITATIONS COMPARISON: Chest For Pe Angio dated 02/08/2020 TECHNIQUE: CT angiogram of the pulmonary arteries was performed with MIP. All CT scans are performed using dose optimization technique as appropriate and may include automated exposure control or mA/KV adjustment according to patient size. FINDINGS: No evidence of pulmonary thromboembolism. No acute aortic finding demonstrated. Subsegmental atelectasis is present both lung bases, greater on the right. Drainage catheter is seen right axillary region. There is moderate inflammation in the right axillary region. No significant pericardial or pleural fluid. No concerning bony finding. The gallbladder is distended and single large gallstone. IMPRESSION: No evidence of pulmonary thromboembolism. Subsegmental atelectasis in both lung bases, greater on the right. Gallbladder distension noted with cholelithiasis.
--- NOTE | 2020-05-26 09:11 | ER ---
Nurse's Notes [facility] Name: Briseida Pitts Age: 65 yrs Sex: Female : 1955 Arrival Date: 05/26/2020 Time: 03:29 Bed 6 Private MD: Diagnosis: Weakness;Anemia, unspecified- recurrent Presentation: 05/26 03:30 Chief complaint: Patient states: Feeling very weak this morning, I felt this way before sg and I was low on blood so i think maybe that is whats wrong today. I had a arm lift surgery to both of my upper arms, and I have a drain from the procedures. Coronavirus screen: Client denies travel out of the [place] in the last 14 days. At this time, the client does not indicate any symptoms associated with coronavirus-19. Initial Sepsis Screen: Does the patient meet any 2 criteria? No. Patient's initial sepsis screen is negative. Does the patient have a suspected source of infection? No. Patient's initial sepsis screen is negative. Risk Assessment: Do you want to hurt yourself or someone else? Patient reports no desire to harm self or others. Onset of symptoms was May 26, 2020. Care prior to arrival: None. Transition of care: patient was not received from another setting of care. 03:30 Acuity: KAYCE 3 sg 03:30 Method Of Arrival: Wheelchair sg 04:40 Ebola Screen: Patient negative for fever greater than or equal to 101.5 degrees wh Fahrenheit, and additional compatible Ebola Virus Disease symptoms Patient denies exposure to infectious person. Historical: - Allergies: 03:32 No Known Allergies; sg - Immunization history:: Adult Immunizations up to date. - Social history:: Smoking status: Patient denies any tobacco usage or history of. Screenin:00 Abuse screen: Denies threats or abuse. Denies injuries from another. Nutritional wh screening: No deficits noted. Tuberculosis screening: No symptoms or risk factors identified. Fall Risk None identified. Assessment: 03:46 General: Appears in no apparent distress. Behavior is calm, cooperative, appropriate wh for age. Pain: Denies pain. Neuro: Level of Consciousness is awake, alert, obeys commands, Oriented to person, place, time, situation, Appropriate for age. Neuro: Reports weakness. Cardiovascular: Heart tones S1 S2 Rhythm is regular. Cardiovascular: Reports palpitations. Respiratory: Airway is patent Respiratory effort is even, unlabored, Respiratory pattern is regular, symmetrical, Breath sounds are clear bilaterally. GI: Abdomen is flat, non-distended. : No signs and/or symptoms were reported regarding the genitourinary system. EENT: No signs and/or symptoms were reported regarding the EENT system. Derm: Skin is intact, is healthy with good turgor, Pt underwent arm lift with sutures on both arms. Musculoskeletal: Circulation, motion, and sensation intact. 04:56 Reassessment: Patient appears in no apparent distress at this time. No changes from previously documented assessment. Patient and/or family updated on plan of care and expected duration. Pain level reassessed. Patient is alert, oriented x 3, equal unlabored respirations, skin warm/dry/pink. 06:25 Reassessment: Patient appears in no apparent distress at this time. Patient and/or wh family updated on plan of care and expected duration. Pain level reassessed. Patient is alert, oriented x 3, equal unlabored respirations, skin warm/dry/pink. 07:29 Reassessment: Patient appears in no apparent distress at this time. Patient and/or ph family updated on plan of care and expected duration. Pain level reassessed. Patient is alert, oriented x 3, equal unlabored respirations, skin warm/dry/pink. Pt taken to CT via stretcher. 08:30 Reassessment: Patient appears in no apparent distress at this time. Patient and/or ph family updated on plan of care and expected duration. Pain level reassessed. Patient is alert, oriented x 3, equal unlabored respirations, skin warm/dry/pink. Vital Signs: 04:40 BP 97 / 60; Pulse 95; Resp 18; Pulse Ox 98% on R/A; wh 05:30 BP 96 / 54; Pulse 84; Resp 18; Pulse Ox 97% on R/A; wh 06:30 BP 94 / 54; Pulse 84; Resp 18; Pulse Ox 98% on R/A; wh 08:00 BP 97 / 56; Pulse 82; Resp 18; Pulse Ox 98% on R/A; ph 09:31 BP 98 / 54; Pulse 81; Resp 16; Temp 97.8; Pulse Ox 99% on R/A; ph ED Course: 03:29 Patient arrived in ED. cl3 03:40 Arm band placed on. sg 03:41 Triage completed. sg 03:45 Jus Cabello RN is Primary Nurse. rv 03:45 Alex Reynaga MD is Attending Physician. [facility] 04:00 Patient has correct armband on for positive identification. Bed in low position. Call light in reach. Side rails up X 1. court recording monitor on. Pulse ox on. NIBP on. 04:01 Primary Nurse role handed off by Jus Cabello RN 04:01 Judi Salas is Primary Nurse. 04:37 Initial lab(s) drawn, by ct, sent to lab. Inserted saline lock: 20 gauge in right rv wrist, using aseptic technique. Blood collected. 07:01 Primary Nurse role handed off by Judi Salas 2 07:29 Yumiko Lomax RN is Primary Nurse. 07:36 Attending Physician role handed off by Alex Reynaga MD [facility] 07:36 Abdiaziz Roberts MD is Attending Physician. kdr 09:31 No provider procedures requiring assistance completed. IV discontinued, intact, ph bleeding controlled, No redness/swelling at site. Pressure dressing applied. 09:54 XRAY Chest (1 view) In Process Unspecified. EDMS Administered Medications: 06:55 Drug: NS 0.9% 1000 ml Route: IV; Rate: 1000 ml; Site: left forearm; 09:00 Follow up: Response: No adverse reaction; IV Status: Completed infusion; IV Intake: ph 1000ml Intake: 09:00 IV: 1000ml; Total: 1000ml. ph Outcome: 09:11 Discharge ordered by . kdr 09:32 Discharged to home via wheelchair, with significant other. ph 09:32 Condition: good 09:32 Discharge instructions given to patient, Instructed on discharge instructions, follow up and referral plans. medication usage, Demonstrated understanding of instructions, follow-up care, medications, Prescriptions given X 1. 09:33 Patient left the ED. ph Signatures: Dispatcher [employer] EDMS Gaurav Orr RN RN Abdiaziz Roberts MD MD [facility] Yumiko Lomax RN RN Judi Salas Abelardo Melgar mw2 Jus Cabello RN RN Marisela Mercado cl3 Alex Reynaga MD MD 7
--- NOTE | 2020-05-26 09:12 | EDPHYS ---
Physician Documentation [facility] Name: Briseida Pitts Age: 65 yrs Sex: Female : 1955 Arrival Date: 05/26/2020 Time: 03:29 Bed 6 Private MD: ED Physician Abdiaziz Roberts HPI: 05/26 04:49 This 65 yrs old Female presents to ER via Wheelchair with complaints of Low mh7 Blood Level. 04:49 The patient presents with a history of heart racing. Context: The symptoms occur at mh7 rest. Onset: The symptoms/episode began/occurred yesterday. Duration: The patient or guardian reports multiple episodes, that are intermittent, that wax and wane. Modifying factors: The symptoms are aggravated by nothing. The symptoms are alleviated by nothing. 04:49 Associated signs and symptoms: Pertinent negatives: anxiety, chest pain, cough, fever, mh7 lightheadedness, nausea, SOB, syncope, near-syncope, vertigo, vomiting, generalized fatigue. Severity of symptoms: At their worst the symptoms were moderate last night, in the emergency department the symptoms have improved moderately. Historical: - Allergies: 03:32 No Known Allergies; sg - Immunization history:: Adult Immunizations up to date. - Social history:: Smoking status: Patient denies any tobacco usage or history of. ROS: 04:49 Constitutional: Negative for fever, chills, and weight loss, Eyes: Negative for injury, mh7 pain, redness, and discharge, ENT: Negative for injury, pain, and discharge, Neck: Negative for injury, pain, and swelling, Respiratory: Negative for shortness of breath, cough, wheezing, and pleuritic chest pain, Abdomen/GI: Negative for abdominal pain, nausea, vomiting, diarrhea, and constipation, Back: Negative for injury and pain, : Negative for injury, bleeding, discharge, and swelling, MS/Extremity: Negative for injury and deformity, Skin: Negative for injury, rash, and discoloration, Neuro: Negative for headache, weakness, numbness, tingling, and seizure, Psych: Negative for depression, anxiety, suicide ideation, homicidal ideation, and hallucinations, Allergy/Immunology: Negative for hives, rash, and allergies, Endocrine: Negative for neck swelling, polydipsia, polyuria, polyphagia, and marked weight changes, Hematologic/Lymphatic: Negative for swollen nodes, abnormal bleeding, and unusual bruising. Exam: 04:49 Constitutional: This is a well developed, well nourished patient who is awake, alert, mh7 and in no acute distress. Head/Face: Normocephalic, atraumatic. 04:49 Neck: Trachea midline, no thyromegaly or masses palpated, and no cervical lymphadenopathy. Supple, full range of motion without nuchal rigidity, or vertebral point tenderness. No Meningismus. Chest/axilla: Normal chest wall appearance and motion. Nontender with no deformity. No lesions are appreciated. Cardiovascular: Regular rate and rhythm with a normal S1 and S2. No gallops, murmurs, or rubs. Normal PMI, no JVD. No pulse deficits. Respiratory: Lungs have equal breath sounds bilaterally, clear to auscultation and percussion. No rales, rhonchi or wheezes noted. No increased work of breathing, no retractions or nasal flaring. Abdomen/GI: Soft, non-tender, with normal bowel sounds. No distension or tympany. No guarding or rebound. No evidence of tenderness throughout. Back: No spinal tenderness. No costovertebral tenderness. Full range of motion. 04:49 Skin: Warm, dry with normal turgor. Normal color with no rashes, no lesions, and no evidence of cellulitis. MS/ Extremity: Pulses equal, no cyanosis. Neurovascular intact. Full, normal range of motion. Neuro: Awake and alert, GCS 15, oriented to person, place, time, and situation. Cranial nerves II-XII grossly intact. Motor strength 5/5 in all extremities. Sensory grossly intact. Cerebellar exam normal. Normal gait. Psych: Awake, alert, with orientation to person, place and time. Behavior, mood, and affect are within normal limits. 04:49 Eyes: Periorbital structures: appear normal, Pupils: equal, round, and reactive to light and accomodation, Extraocular movements: intact throughout, Conjunctiva: pale, bilaterally, Sclera: no appreciated abnormality. 07:48 ECG was reviewed by the Attending Physician. kdr Vital Signs: 04:40 BP 97 / 60; Pulse 95; Resp 18; Pulse Ox 98% on R/A; wh 05:30 BP 96 / 54; Pulse 84; Resp 18; Pulse Ox 97% on R/A; wh 06:30 BP 94 / 54; Pulse 84; Resp 18; Pulse Ox 98% on R/A; wh 08:00 BP 97 / 56; Pulse 82; Resp 18; Pulse Ox 98% on R/A; ph 09:31 BP 98 / 54; Pulse 81; Resp 16; Temp 97.8; Pulse Ox 99% on R/A; ph MDM: 04:[address] [facility] 07:08 Transition of care: After a detail discussion of the patient's case, care is [facility] transferred to Abdiaziz Roberts MD. 09:09 Data reviewed: vital signs, nurses notes. Counseling: I had a detailed discussion with kdr the patient and/or guardian regarding: the historical points, exam findings, and any diagnostic results supporting the discharge/admit diagnosis, lab results, radiology results, the need for outpatient follow up. Special discussion: I discussed with the patient/guardian in detail that at this point there is no indication for admission to the hospital. It is understood, however, that if the symptoms persist or worsen the patient needs to return immediately for re-evaluation. ED course: The patient was feeling better and was fine with going home. She was happy with the care provided and the interventions given. She was happy with the care provided and the plan for discharge and follow-up. 05/26 04:00 Order name: Basic Metabolic Panel [facility] 05/26 04:00 Order name: CBC with Diff [facility] 05/26 04:00 Order name: LFT's [facility] 05/26 04:00 Order name: Magnesium [facility] 05/26 04:00 Order name: NT PRO-BNP [facility] 05/26 04:00 Order name: PT-INR [facility] 05/26 04:00 Order name: Troponin (emerg Dept Use Only) [facility] 05/26 05:09 Order name: CBC with Automated Diff; Complete Time: 05:11 EDMS 05/26 05:14 Order name: Protime (+INR); Complete Time: 05:49 EDMS 05/26 05:29 Order name: Basic Metabolic Panel; Complete Time: 05:49 EDMS 05/26 05:29 Order name: Liver (Hepatic) Function; Complete Time: 05:49 EDMS 05/26 05:29 Order name: Troponin (Emerg Dept Use Only); Complete Time: 05:49 EDMS 05/26 05:29 Order name: NT PRO-BNP; Complete Time: 05:49 EDMS 05/26 05:29 Order name: Magnesium; Complete Time: 05:49 EDMS 05/26 04:00 Order name: XRAY Chest (1 view) [facility] 05/26 04:00 Order name: EKG; Complete Time: 04:02 [facility] 05/26 04:00 Order name: Cardiac monitoring; Complete Time: 04:15 [facility] 05/26 04:00 Order name: EKG - Nurse/Tech; Complete Time: 04:15 [facility] 05/26 04:00 Order name: IV Saline Lock; Complete Time: 04:40 [facility] 05/26 04:00 Order name: Labs collected and sent; Complete Time: 04:40 [facility] 05/26 04:00 Order name: O2 Per Protocol; Complete Time: 04:15 [facility] 05/26 04:00 Order name: O2 Sat Monitoring; Complete Time: 04:15 [facility] 05/26 06:50 Order name: TSH [facility] 05/26 06:58 Order name: CT Chest For PE Angio [facility] 05/26 07:40 Order name: Thyroid Stimulating Hormone; Complete Time: 08:29 EDMS 05/26 07:53 Order name: T4 Free; Complete Time: 08:29 EDMS 05/26 08:41 Order name: CT; Complete Time: 08:54 EDMS EC:48 Rate is 89 beats/min. Rhythm is regular, Normal Sinus Rhythm with No ectopy. QRS [place] kdr is Normal. [place] interval is normal. QRS interval is normal. QT interval is normal. Clinical impression: NSR w/ Non-specific ST/T Changes. Administered Medications: 06:55 Drug: NS 0.9% 1000 ml Route: IV; Rate: 1000 ml; Site: left forearm; 09:00 Follow up: Response: No adverse reaction; IV Status: Completed infusion; IV Intake: ph 1000ml Disposition: 05/26/20 09:11 Discharged to Home. Impression: Weakness, Anemia, unspecified - recurrent. - Condition is Stable. - Discharge Instructions: Anemia, Nonspecific, Fatigue, Weakness, [id number]. - Prescriptions for Zofran 4 mg Oral Tablet - take 1 tablet by ORAL route every 4-6 hours As needed; 20 tablet. - Medication Reconciliation Form, Thank You Letter form. - Follow up: Private Physician; When: 2 - 3 days; Reason: If symptoms return, Further diagnostic work-up, Recheck today's complaints, Continuance of care, Re-evaluation by your physician. - Problem is an acute exacerbation. - Symptoms have improved. Signatures: Dispatcher [employer] EDMS Gaurav Orr RN RN Abdiaziz Roberts MD MD kdr Jerrya, Carlos, OLEOMARGARINE MAKER-C OLEOMARGARINE MAKER-Cla1 Yumiko Lomax RN RN [facility], Judi Alex Reynaga MD MD 7 Corrections: (The following items were deleted from the chart) 09:33 09:11 05/26/2020 09:11 Discharged to Home. Impression: Weakness; Anemia, unspecified - ph recurrent. Condition is Stable. Forms are Medication Reconciliation Form, Thank You Letter, Antibiotic Education, Prescription Opioid Use. Follow up: Private Physician; When: 2 - 3 days; Reason: If symptoms return, Further diagnostic work-up, Recheck today's complaints, Continuance of care, Re-evaluation by your physician. Problem is an acute exacerbation. Symptoms have improved. kdr
[2020-05-26 09:47] VITALS: BP 98/54; TEMP 97.8; O2SAT 99
--- NOTE | 2020-05-27 10:41 | RAD REPORT ---
EXAM DESCRIPTION: XR Chest, 1 View CLINICAL HISTORY: PALPITATIONS TECHNIQUE: Frontal view of the chest. COMPARISON: No relevant prior studies available. FINDINGS: Lungs: No consolidation. Symmetrical vascular pattern. Pleural space: No pneumothorax or pleural effusion. Heart: Normal cardiac size and configuration. Mediastinum: No abnormality noted. Bones/joints: No osseous destruction or sclerosis noted. Tubes, lines and devices: There is a drain projecting in the right axilla. IMPRESSION: 1. No acute cardiopulmonary disease noted. 2. Lines and tubes as above. Electronically signed by: Lenore Adam MD 05/26/2020 5:30 AM CDT Due to temporary technical issues with the PACS/Fluency reporting system, reports are being signed by the in house radiologist without review as a courtesy to ensure prompt reporting. The interpreting r adiologist is fully responsible for the content of the report.
== END 2020-05-26 09:33 | disposition home or self-care (01) ==
LOC: ER 03:27
DX: D64.9 Anemia, unspecified (principal)
CPT/HCPCS: 96361; 93005; 85025; 80048; 36415; 83735; 85610; 80076; 84443; 84484; 84439; 83880; 71275; 71045; 96360; 99284; Q9967; J7030